=== PATIENT | male | born 2005 | race Caucasian/White ===

== ENCOUNTER 2023-12-09 12:55 | Emergency (ER) | payer OTHER ==
[2023-12-09 13:11] VITALS: RESP 16; BMI 40.3
[2023-12-09 14:33] LABS: BASO % 0.2 % (0-2.0); EOS % 3.2 % (0-4.5); HEMATOCRIT 46.3 % (35.4-49); HEMOGLOBIN 15.2 GM/dL (11.7-16.9); LYMPH % 6.4 % (8-40); MCH 25.6 pg (25.7-33.7); MCHC 32.9 g/dl (32.0-35.9); MEAN CELL VOLUME 77.8 fl (80-96); MEAN PLT VOLUME 8.6 fl (7.5-11.1); MONO % 5.3 % (3.8-10.2); NEUT % 84.9 % (42.8-82.8); PLATELET COUNT 357 10^3/uL (134-434); RBC 5.95 M/mm3 (4.00-5.60); RDW 14.5 % (11.9-15.9)
[2023-12-09 15:05] LABS: POTASSIUM 4.4 mmol/L (3.5-5.1)
[2023-12-09 15:07] LABS: ALBUMIN 4.3 g/dl (3.4-5.0); BLOOD UREA NITROGEN 12.6 mg/dL (7-18); CALCIUM 10.1 mg/dL (8.5-10.1)
[2023-12-09 15:10] LABS: CREATININE 0.9 mg/dL (0.55-1.3)
[2023-12-09 15:12] LABS: BILIRUBIN,TOTAL 0.8 mg/dL (0.2-1); TOT PROT 8.3 g/dl (6.4-8.2)
[2023-12-09] MEDS ORDERED: MAG HYDROX/AL HYDROX/SIMETH 30 ML UNIT-DOSE CUP ONE (15:14)
[2023-12-09] MEDS ORDERED: ONDANSETRON 4 MG/2 ML VIAL ONE (15:14)
[2023-12-09] MEDS ORDERED: FAMOTIDINE 20 MG/50 ML IVPB 20 MG/50 ML MG IVPB ONE (15:15)
[2023-12-09] MEDS: ONDANSETRON 4 MG TABLET PO ONE (15:21)
[2023-12-09] MEDS: FAMOTIDINE 20 MG TABLET PO ONE (15:21)
[2023-12-09] MEDS: MAG HYDROX/AL HYDROX/SIMETH -MYLANTA- ORAL SUSPENSION PO ONE (15:21)
[2023-12-09 15:30] LABS: URINE APPEARANCE CLEAR; URINE BILIRUBIN NEGATIVE (NEGATIVE); URINE COLOR YELLOW; URINE GLUCOSE (UA) NEGATIVE (NEGATIVE); URINE KETONE NEGATIVE (NEGATIVE); URINE LEUK ESTERASE NEGATIVE (NEGATIVE); URINE NITRITE NEGATIVE (NEGATIVE); URINE PROTEIN NEGATIVE (NEGATIVE)
[2023-12-09 17:23] VITALS: BP 119/65; PULSE 90; TEMP 98.4
== END 2023-12-09 17:24 | disposition home or self-care (01) ==
LOC: EDBD → JER 12:55
DX: R11.2 Nausea with vomiting, unspecified (principal); R07.89 Other chest pain; R06.02 Shortness of breath; Z20.822 Contact with and (suspected) exposure to COVID-19
CPT/HCPCS: 0241U-QW; 36415; 71046-TC-FY; 80053; 81003; 83690; 84443; 84484; 85025; 85379; 93005; 93010; 99285-25